=== PATIENT | male | born 2000 | race Caucasian/White ===

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

== ENCOUNTER 2022-07-21 13:18 | Emergency (ER) | payer BC, SELFPAY ==
[2022-07-21 13:19] VITALS: BP 137/87; PULSE 103; RESP 16; TEMP 36.8; O2SAT 99; BMI 26.9
--- NOTE | 2022-07-21 14:30 | RAD_ITS ---
STUDY: X-RAY - NASAL BONES REASON FOR EXAM: Male, 21 years old. Nasal injury. TECHNIQUE: 3 view(s) of the nasal bones. COMPARISON: None. FINDINGS: Nondisplaced fracture at the tip of the nasal bone. Normal anterior nasal spine. There is no demonstrated soft tissue swelling. The remaining visualized osseous structures are normal. Partial opacification of the axillary sinuses. RAD/Nasal Bones min 3 Views IMPRESSION: Nondisplaced fracture at the tip of the nasal bone. Electronically Signed: Raji Freeman MD at 14:53 EDT ,
--- NOTE | 2022-07-21 14:32 | EX.ED.DYSGE1 ---
HPI History of Present Illness Chief Complaint: Other, Pain/Inj Informant: patient Onset/Context/Timing Onset: Today Narrative Narrative: Patient states he was using his truck to pull out a tyson. He hit the gas hard. The truck went forward and then was pulled back by the tyson. When this happened he hit his nose on the handle that was on the a pillar. No loss of consciousness. He did tear the skin on his nose but no active bleeding. He had no epistaxis. He has some soreness directly in the area that was hit. No other injuries. Nothing makes better or worse but nothing has been tried. [facility] Medical History Contact with and (suspected) exposure to other viral communicable diseases Lab test negative for COVID-19 virus URI (upper respiratory infection) URI (upper respiratory infection) Home Medications epinephrine 0.3 mg/0.3 mL injection, auto-injector 0.3 mg (0.3 mL) IM X1 ##2 06/26/18 [Rx Last Taken 06/28/18] naproxen 500 mg tablet 500 mg PO BID #20 tabs 07/21/22 [Rx Last Taken Unknown] Allergy/AdvReac Type Severity Reaction Status Date / Time bee venom protein (honey bee) Allergy Severe Anaphylaxis Verified 07/21/22 13:21 venom-wasp [wasp venom] Allergy Severe Anaphylaxis Verified 07/21/22 13:21 clindamycin Allergy Hives Verified 07/21/22 13:21 Surgical History H/O right heart catheterization Hx of adenoidectomy Hx of tonsillectomy Social History Smoking Status: Never smoker alcohol intake: never ROS ROS ED Constitutional Constitutional ED: Denies fever(s) or subjective Eyes Eyes: Denies blurry vision, change in vision or diplopia ENT ENT ED: Reports other Details: See history of present illness. ; Denies ear pain or sore throat Cardiovascular Cardiovascular: Denies chest pain Respiratory/Chest Respiratory/Chest: Denies cough Gastrointestinal Gastrointestinal: Denies nausea or vomiting Musculoskeletal Musculoskeletal: Denies back pain or neck pain Integumentary Reports Abrasions Neurologic Neurologic: Reports other Details: Pain in his nose but not an actual headache ; Denies headache(s), paresthesias or weakness Hematologic/Lymphatic Hematologic/Lymphatic: Denies easy bleeding or easy bruising EXAM Physical Exam Const Vital Signs: 07/21/22 13:19 07/21/22 15:00 Temperature 98.2 F Temperature Source Temporal Pulse Rate 103 H Respiratory Rate 16 Respiratory Effort Normal Non-Labored Respiratory Pattern Normal Blood Pressure 137/87 H Blood Pressure Mean 103 Pulse Ox 99 Oxygen Delivery Method Room Air Positive well nourished and well developed Constitutional Narrative: Patient awake alert appropriate. He is laughing about the event. He feels embarrassed. He is pleasant cooperative and alert General Appearance ED: well developed and NAD HEENT Reports moist mucous membranes HEENT Narrative: Patient has an abrasion to the bridge of his nose central to the right side. No active bleeding. The nose actually looks well lined up. No crepitance. There is no internal bleeding. There is no septal hematoma. No facial tenderness. No facial anesthesia. Eyes Eyes Narrative: No subconjunctival hemorrhage. No limitation of range of motion. No diplopia with upward gaze. Neck supple Neck Narrative: No tenderness. Normal range of motion. General: Negative for tenderness Resp normal respiratory effort and clear to auscultation bilaterally Cardio regular rate and regular rhythm GI normal to inspection, nondistended, normoactive bowel sounds and non-tender Back/Spine no CVA tenderness Neuro oriented x3 Neuro Narrative: Normal gait and balance Sensorium / Orientation: alert; Negative for orientation impaired, lethargic or stuporous Sensory Exam: No sensory level loss detected Motor Exam: strength 5/5 throughout Skin Skin Narrative: Abrasion to the bridge of the nose MDM MDM MDM Narrative Medical decision making narrative: Patient has a slight tear of the skin over the bridge of the nose. But there is nothing that can be sutured. This is cleansed. This will heal. Tetanus is updated. He will be given Naprosyn for pain. He should use ice as that will help quite a bit. I explained that these likely will not need to be fixed. As long as the nose looks good and functions by breathing through both sides well he will likely not need repair. If he has worsening pain, headaches, vomiting, visual changes or other concerns he should return. Radiography Diagnostic Testing: Clinical Impression(s) from Imaging Studies Nasal Bones X-Ray 07/21/22 14:30 IMPRESSION: Nondisplaced fracture at the tip of the nasal bone. Electronically Signed: Raji Freeman MD at 14:53 EDT , Three-view x-ray of nasal bones looked at by me and read by radiology shoot do show nondisplaced fracture of the very distal tip of the nose. Discharge Plan Triage Chief Complaint: Other, Pain/Inj ED Provider: Damian Gant Dx/Rx/DC Orders Clinical Impression: Fracture, nasal Instructions: ED Nose Fracture, with X-Ray Prescriptions: New naproxen 500 mg tablet 500 mg PO BID Qty: 20 0RF No Action epinephrine 0.3 MG syringe 0.3 mg IM X1 Qty: 2 0RF Primary Care Provider: Uriel Clark NP Referrals: Uriel Clark NP, CRAB MEAT PROCESSOR-C [Primary Care Provider] - 1 Week if not improving Disposition Disposition: Home, Self Care
[2022-07-21] MEDS: Diphth,Pertuss(Acell),Tet Vac 0.5 ML Vial IM (14:54)
[2022-07-21] MEDS: Naproxen 250 MG Tablet 500 MG PO (15:21)
== END 2022-07-21 15:23 | disposition home or self-care (01) ==
PROVIDERS: Emergency Provider Emergency Medicine; PCP Nurse Practitioner; Visit Provider Emergency Medicine
DX: S02.2XXA Fracture of nasal bones, initial encounter for closed fracture (principal); X58.XXXA Exposure to other specified factors, initial encounter
CPT/HCPCS: 70160; 90715; 99282

== ENCOUNTER 2023-09-23 20:11 | Emergency (ER) | payer BC, SELFPAY ==
[2023-09-23 20:12] VITALS: BP 116/86; PULSE 71; RESP 18; TEMP 36.6; O2SAT 100; BMI 30.7
--- NOTE | 2023-09-23 20:15 | EKG12_ITS ---
Test Reason : CP Blood Pressure : / mmHG Vent. Rate : 078 BPM Atrial Rate : 078 BPM P-R Int : 140 ms QRS Dur : 092 ms QT Int : 348 ms P-R-T Axes : 025 011 036 degrees QTc Int : 396 ms Normal sinus rhythm with sinus arrhythmia Normal ECG Confirmed by JOSE CLEMENT, TREMAYNE ([id number]), publication editor KARRIE PHELPS ([id number]) on 09/24/2023 2:05:16 PM Referred By: Confirmed By:TREMAYNE GARCIA MD
--- NOTE | 2023-09-23 20:25 | RAD_ITS ---
EXAM: XR CHEST, 1 VIEW CLINICAL INDICATION: chest pain TECHNIQUE: Frontal view of the chest. COMPARISON: 12/10/2018 FINDINGS: LUNGS AND PLEURAL SPACES: Unremarkable. No consolidation or edema. No pneumothorax. No effusion. HEART: Unremarkable. Cardiac silhouette not enlarged. MEDIASTINUM: Central airways and mediastinal contour are unremarkable. BONES/JOINTS: Unremarkable. No acute fracture. SOFT TISSUES: Unremarkable. RAD/Chest 1 View (Portable) IMPRESSION: No radiographic evidence of acute cardiopulmonary disease. Electronically Signed: Daniel Paz MD at 20:53 EST ,
[2023-09-23 20:41] LABS: Absolute Lymphocyte Count 3.37 X10^3/uL (0.83-4.51); Absolute Neutrophil Count 4.5 X10^3/uL (2.0-7.7); Basophil# 0.06 X10^3/uL; Basophil% 0.7 % (0-1); Eosinophil# 0.51 X10^3/uL; Eosinophils% 5.6 % (0-5); Hematocrit 45.9 % (40-54); Hemoglobin 15.4 g/dL (13.0-16.5); Lymphocyte # 3.37 X10^3/ul (0.83-4.51); Lymphocyte % 36.9 % (19-41); Mean Corp Hgb Conc 33.6 g/dL (32-36); Mean Corpuscular Hgb 29.7 pg (27.0-32.0); Mean Corpuscular Volume 88.6 fL (80-94); Mean Platelet Vol. 10.1 fl (6.2-12.0); Monocyte% 7.7 % (0-10); NRBC Flagged by Analyzer 0 % (0-5); Neutrophil # 4.47 X10^3/uL (2.7-7.7); Neutrophil % 48.8 % (47-70); Platelet Count 294 K/mm3 (150-450); RBC Distribution Width CV 11.9 % (11.6-14.6); RBC Distribution Width SD 38.9 fl (35.1-43.9); Red Blood Count 5.18 M/mm3 (4.6-6.2); White Blood Count 9.1 K/mm3 (4.4-11.0)
[2023-09-23 21:04] LABS: Anion Gap 4 (5-15); BUN 9 mg/dL (7-18); BUN/Creat Ratio 8.7 RATIO (10-20); Calcium,Total 9.7 mg/dL (8.5-10.1); Chloride 109 mmol/L (98-107); Creatinine, Serum 1.03 mg/dL (0.70-1.30); EST Glomerular Filtration Rate 97 mL/min (>60); Est Glom Filt Rate - Afr Amer 118 mL/min (>60); Estimated Creatinine Clearance 133.01 ml/min; Glucose 108 mg/dL (74-106); Potassium 3.7 mmol/L (3.5-5.1); Sodium Level 140 mmol/L (136-145); Troponin-I HS (w/2H Reflex) 4 pg/mL (3.0-78.0)
[2023-09-23] MEDS: Mag Hydrox/Al Hydrox/Simeth 30 ML UDC PO (21:11)
[2023-09-23] MEDS: Ketorolac 15 MG/ML Vial IM (21:11)
[2023-09-23] MEDS: Ondansetron 4 MG/2 ML Vial IV (21:11)
--- NOTE | 2023-09-23 21:12 | EDS_ITS ---
HPI History of Present Illness Chief Complaint: Chest Pain Narrative Narrative: 22-year-old male presenting with chest pain. He states has had it for the last few days. It is worse overnight last night. He states initially it was intermittent and he points to the sternum. It does not really radiate. It feels sharp in nature. He was concerned that it was maybe from acid reflux and has been avoiding foods that would trigger this. He has been taking Pepcid and Tums. He still having the pain in his chest. It does hurt when he takes a deep breath and it does hurt when he touches his chest. No DVT/PE risk factors. Patient has history of ablation when he was younger secondary to having SVT but does not have any other cardiac history. He used to vape but no longer uses tobacco products or nicotine products. He has not fevers, chills. He states he feels mildly nauseous with his symptoms and a little bit dyspneic. Patient states that he is chronically a little bit dyspneic. There is nothing out of the ordinary for him. The nausea is new. [facility] Medical History Contact with and (suspected) exposure to other viral communicable diseases Lab test negative for COVID-19 virus URI (upper respiratory infection) URI (upper respiratory infection) Home Medications epinephrine 0.3 mg/0.3 mL injection, auto-injector 0.3 mg (0.3 mL) IM X1 ##2 06/26/18 [Rx Last Taken 06/28/18] naproxen 500 mg tablet 500 mg PO BID #20 tabs 07/21/22 [Rx Last Taken Unknown] ondansetron 4 mg disintegrating tablet 4 mg PO Q8H PRN PRN Nausea #14 tabs 09/23/23 [Rx Last Taken Unknown] sucralfate 100 mg/mL oral suspension (Carafate) 10 ml PO BID PRN epigastric pain #400 mL 09/23/23 [Rx Last Taken Unknown] Allergy/AdvReac Type Severity Reaction Status Date / Time bee venom protein (honey bee) Allergy Severe Anaphylaxis Verified 09/23/23 20:14 venom-wasp [wasp venom] Allergy Severe Anaphylaxis Verified 09/23/23 20:14 clindamycin Allergy Hives Verified 09/23/23 20:14 Surgical History H/O right heart catheterization Hx of adenoidectomy Hx of tonsillectomy Social History Smoking Status: Never smoker alcohol intake: never ROS ROS ED Constitutional Constitutional ED: Denies chills, fever(s) or sweats Eyes Eyes: Denies blurry vision or change in vision ENT ENT ED: Denies ear pain or sore throat Cardiovascular Cardiovascular: Reports chest pain; Denies palpitations or racing heartbeat Respiratory/Chest Respiratory/Chest: Reports dyspnea; Denies cough or sputum Gastrointestinal Gastrointestinal: Reports nausea; Denies abdominal pain, constipation, diarrhea or vomiting Genitourinary Genitourinary ED: Denies dysuria, hematuria or urinary frequency Musculoskeletal Musculoskeletal: Denies arthralgias, myalgias or neck pain Integumentary Denies abscess, Abrasions or rash Neurologic Neurologic: Denies headache(s), paresthesias or weakness Psychiatric Psychiatric: Denies anxiety, depression, suicidal ideation or suicidal thoughts Endocrine Endocrinology: Denies polydipsia or polyuria EXAM Physical Exam Const Vital Signs: 09/23/23 20:12 09/23/23 21:21 09/23/23 21:21 Temperature 97.9 F Temperature Source Temporal Pulse Rate 71 73 Respiratory Rate 18 16 Blood Pressure 116/86 H 144/85 H Blood Pressure Mean 96 104 Pulse Ox 100 98 98 Oxygen Delivery Method Room Air Room Air Room Air 09/23/23 22:09 09/23/23 22:12 Temperature Temperature Source Pulse Rate 79 Respiratory Rate 18 Blood Pressure 135/94 H Blood Pressure Mean 107 Pulse Ox 99 Oxygen Delivery Method Room Air Positive well nourished General Appearance ED: NAD; Negative for pallor HEENT Reports moist mucous membranes normocephalic and atraumatic Eyes PERRL and EOMs intact bilaterally Chest Wall Chest Narrative: There is to palpation of the sternum. There is no crepitance, deformity. No bruising. Equal symmetric breath sounds or chest wall rise. Resp normal respiratory effort and clear to auscultation bilaterally Auscultation: Negative for rales, rhonchi or wheezes Cardio regular rate and regular rhythm Extremity normal to inspection General Extremety ED: Negative for edema General Extremity: Negative for edema Neuro oriented x3 Sensorium / Orientation: awake and alert Psych mental status grossly normal Mood & Affect: Negative for depressed or anxious Skin no rashes or lesions noted General Skin Exam: Negative for jaundice or pallor MDM MDM MDM Narrative Medical decision making narrative: Patient presenting with chest pain. It is reproducible on exam and is located in the sternum. Patient PERC negative. No DVT/PE risk factors. Differential includes costochondritis, pneumonia, ACS, GERD, gastritis. CBC was obtained to assess white blood cell count, hemoglobin, platelets, BMP to assess renal function, electrolytes. High-sensitivity troponin and EKG were obtained to assess for ischemia. Chest x-ray to rule out pneumonia. CBC, BMP, troponin all within normal limits. High-sensitivity troponin is actually 4 and he states he had pain in his chest since this morning so I do not believe he needs a delta troponin. After being treated with Zofran and a GI cocktail he felt a lot of relief. We discussed his negative workup and I told him we would send him home with Carafate and Zofran and he can use Tylenol at home to help with pain. He states at 1 point he stood up to plug in his phone he started having pain in his chest again. Still reproducible possible this could be costochondritis as well. I do not believe this is an acute and after discussion the patient was told to discharge. Impression: 1. Costochondritis 2. Chest pain 3. Gastritis Lab Data Attestation: I reviewed the patient's lab results. Labs: Laboratory Results - last 24 hr 09/23/23 20:20 WBC 9.1 RBC 5.18 Hgb 15.4 Hct 45.9 MCV 88.6 MCH 29.7 MCHC 33.6 RDW Std Deviation 38.9 RDW Coeff of Sukhjinder 11.9 Plt Count 294 MPV 10.1 Immature Gran % (Auto) 0.300 Neut % (Auto) 48.8 Lymph % (Auto) 36.9 Lamar % (Auto) 7.7 Eos % (Auto) 5.6 H Baso % (Auto) 0.7 Absolute Neuts (auto) 4.5 Absolute Lymphs (auto) 3.37 Nucleated RBC % 0 Sodium 140 Potassium 3.7 Chloride 109 H Carbon Dioxide 27.0 Anion Gap 4 L BUN 9 Creatinine 1.03 Estim Creat Clear Calc 133.01 Est GFR (MDRD) Af Amer 118 Est GFR (MDRD) Non-Af 97 BUN/Creatinine Ratio 8.7 L Glucose 108 H Calcium 9.7 Troponin I High Sens 4 Radiography Diagnostic Testing: Clinical Impression(s) from Imaging Studies Chest X-Ray 09/23/23 20:25 IMPRESSION: No radiographic evidence of acute cardiopulmonary disease. Electronically Signed: Daniel Paz MD at 20:53 EST , Discharge Plan Triage Chief Complaint: Chest Pain ED Provider: Uriel Santos Dx/Rx/DC Orders Instructions: ED Chest Wall Pain, Costochondritis, ED GERD (Adult) Prescriptions: New sucralfate [Carafate] 100 mg/mL suspension 10 ml PO BID PRN (Reason: epigastric pain) Qty: 400 0RF ondansetron 4 mg tablet,disintegrating 4 mg PO Q8H PRN PRN (Reason: Nausea) Qty: 14 0RF No Action epinephrine 0.3 MG syringe 0.3 mg IM X1 Qty: 2 0RF naproxen 500 mg tablet 500 mg PO BID Qty: 20 0RF Primary Care Provider: Uriel Clark NP Referrals: Uriel Clark NP, EXAMINATION GRADER-C [Primary Care Provider] - Disposition Disposition: Home, Self Care
[2023-09-23 21:21] VITALS: BP 144/85; PULSE 73; RESP 16; O2SAT 98
[2023-09-23 22:09] VITALS: PULSE 79; RESP 18; O2SAT 99
[2023-09-23 22:12] VITALS: BP 135/94
[2023-09-23 22:26] LABS: Reflex Troponin-HS? (from REC) Y
[2023-09-23 22:43] VITALS: BP 114/78; PULSE 81; RESP 16; O2SAT 98
== END 2023-09-23 22:44 | disposition home or self-care (01) ==
PROVIDERS: Emergency Provider Student in an Organized Health Care Education/Training Program; PCP Nurse Practitioner; Visit Provider Student in an Organized Health Care Education/Training Program
DX: M94.0 Chondrocostal junction syndrome [Tietze] (principal); K29.70 Gastritis, unspecified, without bleeding; Z87.891 Personal history of nicotine dependence
CPT/HCPCS: 71045; 80048; 84484; 85025; 93005; 96372; 96374; 99285; A4216; J2405

== ENCOUNTER 2024-09-29 21:15 | Emergency (ER) | payer BC, SELFPAY ==
[2024-09-29 21:15] VITALS: BP 122/86; PULSE 90; RESP 16; TEMP 36.6; O2SAT 98; BMI 28.5
--- NOTE | 2024-09-29 22:17 | EDS_ITS ---
HPI History of Present Illness Chief Complaint: [facility] History Contact with and (suspected) exposure to other viral communicable diseases Lab test negative for COVID-19 virus URI (upper respiratory infection) URI (upper respiratory infection) Home Medications ?Medication ?Instructions ?Recorded ?Last Taken ?Type epinephrine 0.3 mg/0.3 mL 0.3 mg (0.3 mL) IM X1 ##2 06/26/18 06/28/18 Rx injection, auto-injector naproxen 500 mg tablet 500 mg PO BID #20 tabs 07/21/22 Unknown Rx ondansetron 4 mg disintegrating 4 mg PO Q8H PRN PRN Nausea #14 tabs 09/23/23 Unknown Rx tablet sucralfate 1 gram tablet (Carafate) 1 g PO BID PRN epigastric #30 tabs 09/23/23 Unknown Rx Allergy/AdvReac Type Severity Reaction Status Date / Time bee venom protein (honey bee) Allergy Severe Anaphylaxis Verified 09/23/23 20:14 venom-wasp (wasp venom) Allergy Severe Anaphylaxis Verified 09/23/23 20:14 clindamycin Allergy Hives Verified 09/23/23 20:14 Surgical History H/O right heart catheterization Hx of adenoidectomy Hx of tonsillectomy Social History Smoking Status: Never smoker alcohol intake: never EXAM Physical Exam Const Vital Signs: 09/29/24 21:15 09/29/24 23:16 Temperature 98 F 97.8 F Temperature Source Oral Pulse Rate 90 67 Respiratory Rate 16 16 Blood Pressure 122/86 H 124/78 H Blood Pressure Mean 98 93 Pulse Ox 98 99 Oxygen Delivery Method Room Air MDM MDM MDM Narrative Medical decision making narrative: HISTORY OF PRESENT ILLNESS: 23-year-old male presents with numbness and tingling to the left lower extremity. Notes numbness and tingling from mid calf down to foot. Occurred 4 days ago. No recent trauma. No knee pain. No back pain. No history of sciatica. Denies history of back surgeries. Denies any fall or other trauma. Denies history of diabetes. Patient denies any saddle anesthesia, urinary tension, bowel or bladder incontinence, lower extremity weakness, fever or IV drug use, no recent spinal manipulation or surgery, no recent urinary catheterization. REVIEW OF SYSTEMS: All other systems reviewed and are negative except as noted in the history of present illness. At least 10 review of systems reviewed and are negative except as noted in history of present illness. PHYSICAL EXAM: Nursing triage notes reviewed, Vital signs reviewed Constitutional: please see mdm HENT: MMM Eyes: Pupils equal round and reactive to light, Extraocular muscles intact Neck: No stridor, no JVD, full neck ROM Lungs: Clear to auscultation, No wheezing or rales. No increased work of breathing, no conversational dyspnea, no accessory muscle use, no nasal flaring. No respiratory distress noted Heart: Regular rate and rhythm, No murmurs, No rubs and No gallops, 2+ distal pulses (radial, femoral, posterior tibial) in all extremities Abdomen: Soft, there is no tenderness, rigidity, rebound or guarding, no obvious peritoneal signs, no palpable pulsatile abdominal masses, no auscultated abdominal bruit : No CVAT Extremities: No edema Back: No midline step-offs or deformities Neuro: Intact sensation L1-S1 dermatomal distributions. Intact 5/5 strength in hip flexion (T12-L3). Knee extension (L2-L4). Ankle dorsiflexion (L4-L5). Ankle plantar flexion (S1). Great toe extension (L5). 2+ patellar and Achilles DTRs. Skin: No rash or lesions noted MEDICAL DECISION MAKING: Chief Complaint: Back pain External records reviewed: Reviewed prior x-ray lumbar spine showed normal lumbar lordosis, normal vertebral bodies, no fractures or dislocations Factors affecting care: Back pain Social determinants of health: No IV drug use History obtained from others: none Consults: none ALL IMAGES (IF OBTAINED) HAVE BEEN PERSONALLY REVIEWED AND INTERPRETED BY MYSELF. [facility] Narrative: The patient was initially hemodynamically stable, afebrile and nontoxic- appearing. Left lower extremity is neurovascular intact. Had good cap refill, palpable pulses. Intact sensation although the patient noted subjective change in sensation of left lower extremity. Intact ankle knee and hip range of motion. No midline step-offs or deformities noted to the lumbar spine. I considered the following differential diagnosis: Musculoskeletal back pain, arterial occlusion, DVT, septic arthritis, ankle knee or other bony fracture dislocation space-occupying lesion of the spinal (epidural abscess, epidural hematoma), cauda equina, conus medullaris, fracture dislocation, AAA, nephrolithiasis, pyelonephritis, aortic dissection The patient's history and clinical exam were not consistent with an acute life- threatening etiology. Specifically there is no focal neurologic deficits to suggest CVA. He had intact pulses. No evidence of arterial occlusion. Patient had no back pain or back pain red flags to suggest space-occupying lesion of the spine. He had full range of motion ankle knee and hip. No evidence of fracture or dislocation. Unclear etiology I suspect peripheral neuropathy. The patient and/or family, caregivers express understanding. The patient and/or family, caregivers agrees with the plan. Total critical care time today provided was at least 0 minutes. This excludes separately billable procedures. Critical care time (if documented) is secondary to the patient having high probability of clinically significant/life threatening deterioration in the patient's condition which required my urgent intervention. Impression: 1. Peripheral neuropathy Disposition: Discharge home Agapito Wolff DO Discharge Plan Triage Chief Complaint: Numb/Ting Other Complaint: Lower Extremity Injury ED Provider: Agapito Wolff Dx/Rx/DC Orders Clinical Impression: Peripheral neuropathy Instructions: ED Neuropathy, Peripheral Prescriptions: No Action epinephrine 0.3 MG syringe 0.3 mg IM X1 Qty: 2 0RF naproxen 500 mg tablet 500 mg PO BID Qty: 20 0RF ondansetron 4 mg tablet,disintegrating 4 mg PO Q8H PRN PRN (Reason: Nausea) Qty: 14 0RF sucralfate [Carafate] 1 gram tablet 1 g PO BID PRN (Reason: epigastric) Qty: 30 0RF Primary Care Provider: Uriel Clark NP Referrals: Uriel Clark NP, DIRECTOR OF STUDENT [employer]ANCIAL SERVICES-C [Primary Care Provider] - Activity Restrictions/Additional Instructions: Thank you for trusting us with your care today! Please take Tylenol (2 pills, 650 mg), ibuprofen (2 pills, 400 mg) every 6 hours as needed for pain and fever control. Please return to the emergency department if your symptoms change or worsen. Specifically if you notice back pain, loss of bladder bowel control, urinary retention, decreased sensation in your primary region, discoloration of your left lower extremity, cool left lower extremity. Please follow with your primary care physician for further outpatient evaluation and management. Print Language: Ethiopian Disposition Disposition: Home, Self Care Discharge Date/Time: 09/29/24 23:17
[2024-09-29 23:16] VITALS: BP 124/78; PULSE 67; RESP 16; TEMP 36.6; O2SAT 99
== END 2024-09-29 23:17 | disposition home or self-care (01) ==
PROVIDERS: Emergency Provider Emergency Medicine; PCP Nurse Practitioner; Visit Provider Emergency Medicine
DX: G62.9 Polyneuropathy, unspecified (principal)
CPT/HCPCS: 99283

== ENCOUNTER 2025-04-30 23:09 | Emergency (ER) | payer BC, SELFPAY ==
[2025-04-30 23:11] VITALS: BP 127/81; PULSE 92; RESP 18; TEMP 36.4; O2SAT 99; BMI 29.0
--- NOTE | 2025-04-30 23:26 | EX.ED.DYSGE1 ---
HPI History of Present Illness Chief Complaint: Allergic Reaction Informant: patient and parent Narrative Narrative: 24-year-old male was stung by bees while he was mowing this afternoon, this was 6 or 8 hours ago, he thinks he was stung 3-4 times total, couple of them in the right thigh and once in the right face/cheek. States he has a history of allergies, and he did undergo allergy shots for this after he had been hospitalized in the past and this is the first time his been stung since then. He went in a house and took a couple of Benadryl right away, and took a nap. When he woke up he has felt hot, throat now feeling a little tight tonight, but denies dyspnea, syncope, near syncope, peripheral swelling, significant discomfort/pain at sting sites, and he feels like his face is swollen. He checked to see if he had an EpiPen but they were all he has not used any. [facility] Medical History Contact with and (suspected) exposure to other viral communicable diseases URI (upper respiratory infection) Lab test negative for COVID-19 virus URI (upper respiratory infection) Home Medications ?Medication ?Instructions ?Recorded ?Last Taken ?Type naproxen 500 mg tablet 500 mg PO BID #20 tabs 07/21/22 Unknown Rx ondansetron 4 mg disintegrating 4 mg PO Q8H PRN PRN Nausea #14 tabs 09/23/23 Unknown Rx tablet sucralfate 1 gram tablet (Carafate) 1 g PO BID PRN epigastric #30 tabs 09/23/23 Unknown Rx epinephrine 0.3 mg/0.3 mL 0.3 mg (0.3 mL) IM X1 PRN 04/30/25 Unknown Rx injection, auto-injector anaphylaxis #2 syringes prednisone 20 mg tablet 40 mg (2 x 20 mg) PO DAILY 4 days 04/30/25 Unknown Rx #8 tabs Allergy/AdvReac Type Severity Reaction Status Date / Time bee venom protein (honey bee) Allergy Severe Anaphylaxis Verified 04/30/25 23:11 venom-wasp (wasp venom) Allergy Severe Anaphylaxis Verified 04/30/25 23:11 clindamycin Allergy Hives Verified 04/30/25 23:11 Surgical History H/O right heart catheterization Hx of adenoidectomy Hx of tonsillectomy Social History Smoking Status: Current every day smoker tobacco type: cigarettes and e-cigarettes alcohol intake: never ROS ROS ED Constitutional Constitutional ED: Denies chills or fever(s) Eyes Eyes: Denies change in vision or diplopia ENT ENT ED: Reports as per HPI and throat swelling; Denies rhinorrhea or sore throat Cardiovascular Cardiovascular: Denies chest pain, leg edema, lightheadedness, palpitations or syncope Respiratory/Chest Respiratory/Chest: Denies cough or dyspnea Gastrointestinal Gastrointestinal: Denies abdominal pain, diarrhea, nausea or vomiting Genitourinary Genitourinary ED: Denies dysuria or hematuria Musculoskeletal Musculoskeletal: Denies back pain or neck pain Integumentary Denies abscess or rash Neurologic Neurologic: Denies headache(s), paresthesias or weakness Psychiatric Psychiatric: Denies anxiety or suicidal thoughts EXAM Physical Exam Const Vital Signs: 04/30/25 23:11 Temperature 97.6 F L Temperature Source Temporal Pulse Rate 92 Respiratory Rate 18 Blood Pressure 127/81 H Blood Pressure Mean 96 Pulse Ox 99 Oxygen Delivery Method Room Air Positive well nourished and well developed General Appearance ED: well developed and NAD HEENT Reports moist mucous membranes HEENT Narrative: Small area of erythema mild swelling right facial cheek consistent with a [id number] reaction no tenderness to suggest infection. No other objective facial edema. Intraoral exam is normal no stridor normal voice. normocephalic and atraumatic Eyes PERRL and EOMs intact bilaterally Neck full ROM, no lymphadenopathy and supple Resp normal respiratory effort and clear to auscultation bilaterally Cardio regular rate, regular rhythm and no murmurs Rate: Negative for tachycardic GI non-tender and non-distended Auscultation: normoactive bowel sounds Palpation: soft Back/Spine no CVA tenderness General Back: other FROM Extremity normal to inspection General Extremety ED: Negative for edema, pulses abnormal or tenderness General Extremity: Negative for edema or pulses abnormal Neuro oriented x3, CN's II-XII intact bilaterally and no sensory deficits noted Sensorium / Orientation: awake and alert Motor Exam: strength 5/5 throughout Skin no rashes or lesions noted and no wounds Skin Narrative: Likely sting site right cheek, no lesions on the leg, compartment soft and nondistended no other rashes. MDM MDM MDM Narrative Medical decision making narrative: Distended patient has some throat symptoms, but he is speaking normally is able to swallow, his vital signs are normal, and he has no objective signs of true anaphylaxis at this time. We placed an IV and give him some IV steroids, H2 and H1 blockers, and observed him. There is no worsening, so I think he is stable for discharge home with a short course of steroids and new EpiPen prescription. Do not think he needs any epinephrine at this time discussed that with patient is comfortable with that overall plan we discussed reasons to return and use EpiPen. 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 Instructions: ED BEE STING General Allergic Rxn Prescriptions: New prednisone 20 mg tablet 40 mg PO DAILY 4 Days Qty: 8 0RF Changed epinephrine 0.3 MG syringe 0.3 mg IM X1 PRN (Reason: anaphylaxis) Qty: 2 0RF No Action naproxen 500 mg tablet 500 mg PO BID Qty: 20 0RF ondansetron 4 mg tablet,disintegrating 4 mg PO Q8H PRN PRN (Reason: Nausea) Qty: 14 0RF sucralfate [Carafate] 1 gram tablet 1 g PO BID PRN (Reason: epigastric) Qty: 30 0RF Primary Care Provider: Uriel Clark NP Referrals: Uriel Clark NP, RENT AND MISCELLANEOUS REMITTANCE CLERK-C [Primary Care Provider] - As Needed (Or current physician/park recreation manager) Print Language: Chilean Disposition Disposition: Home, Self Care
[2025-04-30] MEDS: Famotidine 200 MG/20 ML MDV 20 MG in 0.9% Normal Saline (Pres. free 8 ML 300 MG IV (23:40)
--- OUTSIDE RECORDS SUMMARY | 2025-04-30 23:42 | XMS RPT_ITS | CCD ---
Author Organization [facility] Care Team Providers Care Artist Model Name Role Phone Hernán TRIPP, Trinity N Unavailable Unavailab le Hernán TRIPP, Trinity N Unavailable Unavailab le Hernán TRIPP, Trinity N Unavailable Unavailab ian Clark DOCKING SAW OPERATOR, DOCKING SAW OPERATOR-C Uriel Primary Care Provider Eduardo DOCKING SAW OPERATOR, DOCKING SAW OPERATOR-C Uriel Referring Provider Uriel TATUM, DEEPTI Joseph Attending Provider LUKASZ DLIL Attending Unavailable REFERRED, SELF Referring Unavailable KRUEPKE, KARRIE M Primary Care Unavailable LUKASZ DILL Attending Unavailable REFERRED, SELF Referring Unavailable KRUEPKE, KARRIE M Primary Care Unavailable LUKASZ DILL Attending Unavailable REFERRED, SELF Referring Unavailable KRUEPKE, KARRIE M Primary Care Unavailable LUKASZ DILL Attending Unavailable REFERRED, SELF Referring Unavailable KRUEPKE, KARRIE M Primary Care Unavailable LUKASZ DILL Attending Unavailable KRUEPKE, KARRIE M Referring Unavailable KRUEPKE, KARRIE M Primary Care Unavailable LUKASZ DILL Attending Unavailable KRUEPKE, KARRIE M Referring Unavailable KRUEPKE, KARRIE M Primary Care Unavailable LUKASZ DILL Attending Unavailable KRUEPKE, KARRIE M Referring Unavailable KRUEPKE, KARRIE M Primary Care Unavailable LUKASZ DILL Attending Unavailable KRUEPKE, KARRIE M Referring Unavailable KRUEPKE, KARRIE M Primary Care Unavailable LUKASZ DILL Attending Unavailable KRUEPKE, KARRIE M Referring Unavailable KRUEPKE, KARRIE M Primary Care Unavailable LUKASZ DILL Attending Unavailable REFERRED, SELF Referring Unavailable KRUEPKE, KARRIE M Primary Care Unavailable LUKASZ DILL Attending Unavailable REFERRED, SELF Referring Unavailable KRUEPKE, KARRIE M Primary Care Unavailable LUKASZ DILL Attending Unavailable REFERRED, SELF Referring Unavailable KARRIE SAAVEDRA Primary Care Unavailable REFERRED, SELF Referring Unavailable KARRIE SAAVEDRA Primary Care Unavailable LUKASZ DILL Attending Unavailable Uriel Clark Primary Care Unavailable Agapito Wolff Attending Unavailable Uriel Clark Referring Unavailable Uriel Clark Primary Care Unavailable Suhail Estrella Attending Unavailable Allergies Allergy Classification Reported Allergen(s) Allergy Type Date of Onset Reaction(s) Facility (1 source) Clindamycin Drug Allergy 2 Hives [facility] Work Phone: (1 source) bee venom protein (honey bee) Allergy to substance 2 Anaphylaxis [facility] Work Phone: (1 source) venom-wasp Allergy to substance 2 Anaphylaxis [facility] Work Phone: (1 source) bee venom; Translations: [BEE VENOM] Propensity to adverse reactions to drug (disorder) 8 [facility] Repository (1 source) CLINDAMYCIN/LINC OMYCIN; Translations: [CLINDAMYCIN/GILLIAN COMYCIN] Propensity to adverse reactions to drug (disorder) 9 [facility] Repository (1 source) Clindamycin Drug Allergy 5 [facility] Rep[facility] (1 source) venom-wasp Drug allergy (disorder) 5 [facility] (1 source) bee venom protein (honey bee) Drug allergy (disorder) 5 [facility] Medications Current Medications Medication Drug Class(es) Dates Sig (Normalized) Sig (Original) [id number] 0.3 ml EPINEPHrine 1 mg/ml auto-injector (1 source) alpha-Adrenergic Agonist, beta-Adrenergic Agonist, Catecholamine Start: 06-26-2018 inject 0.3 mg by intramuscular injection once Epinephrine Active 0.3 MG IM ONE TIME June 26, 2018 12:00am naproxen 500 mg oral tablet (1 source) Nonsteroidal Anti-inflammatory Drug Start: 07-21-2022 take 500 mg by mouth twice daily Naproxen Active 500 MG PO TWICE A DAY July 21, 2022 12:00am Completed/Discontinued Medications Medication Drug Class(es) Dates Sig (Normalized) Sig (Original) acetaminophen 300 mg / codeine phosphate 30 mg oral tablet (1 source) Opioid Agonist Start: 06-15-2017 End: 10-20-2017 take 1 tablet by mouth every four hours as needed Acetaminophen-Code ine Discontinued 1 TABLET PO EVERY 4 HOURS NEEDED June 15, 2017 3:10am October 20, 2017 5:48pm azithromycin 250 mg oral tablet (1 source) Macrolide Antimicrobial Start: 01-10-2018 End: 01-15-2018 Azithromycin Discontinued 250 MG PO daily 6 January 10, 2018 12:00am January 15, 2018 12:07am Take 2 tabs once on day one then take one tablet once daily for the next 4 days. cephalexin 500 mg oral capsule (4 sources) Cephalosporin Antibacterial Start: 12-22-2018 End: 12-06-2019 take 500 mg by mouth every twelve hours Cephalexin Discontinued 500 MG PO EVERY 12 HOURS December 22, 2018 12:00am December 06, 2019 11:19am Start: 01-30-2017 End: 02-09-2017 CEPHALEXIN 500 MG TABS Take 1 tablet every 12 hours CEPHALEXIN [id number] Suhail TATUM diphenhydrAMINE hydrochloride 25 mg oral capsule (1 source) Histamine-1 Receptor Antagonist Start: 06-27-2018 End: 10-16-2018 take 50 mg by mouth three times daily as needed Diphenhydramine Hcl Discontinued 50 MG PO 3 TIMES DAILY NEEDED June 27, 2018 1:32pm October 16, 2018 2:50pm famotidine 20 mg oral tablet (1 source) Histamine-2 Receptor Antagonist Start: 06-27-2018 End: 10-16-2018 take 20 mg by mouth twice daily Famotidine Discontinued 20 MG PO TWICE A DAY June 27, 2018 12:00am October 16, 2018 2:50pm IBUPROFEN CAPS (2 sources) Nonsteroidal Anti-inflammatory Drug Start: 01-30-2017 ADVIL CAPS as directed IBUPROFEN CAPS [id number] Suhail TATUM ofloxacin 3 mg/ml ophthalmic solution (1 source) Quinolone Antimicrobial Start: 01-15-2019 End: 12-06-2019 Ofloxacin Discontinued 0 OPHTHALMIC .COMPLEX January 15, 2019 12:00am December 06, 2019 11:19am put 1-2 drps into affected eye(s) every 2-4 h x 2 days, then 1-2 drps 4 times/day days 3-7 ophthalmic (eye) ondansetron 4 mg disintegrating oral tablet (1 source) Serotonin-3 Receptor Antagonist Start: 06-15-2017 End: 10-20-2017 take 4 mg by mouth every eight hours as needed Ondansetron Discontinued 4 MG PO EVERY 8 HOURS NEEDED June 15, 2017 12:00am October 20, 2017 5:48pm oseltamivir 75 mg oral capsule (1 source) Neuraminidase Inhibitor Start: 12-06-2019 End: 12-11-2019 take 75 mg by mouth twice daily Oseltamivir Discontinued 75 MG PO TWICE A DAY 10 December 06, 2019 1:00am December 11, 2019 12:09am predniSONE 20 mg oral tablet (3 sources) Start: 12-22-2018 End: 12-06-2019 take 40 mg by mouth once daily at mealtime Prednisone Discontinued 40 MG PO DAILY December 22, 2018 12:00am December 06, 2019 11:18am With food Start: 12-22-2018 End: 12-06-2019 take 60 mg by mouth once daily at mealtime Prednisone Discontinued 60 MG PO DAILY December 22, 2018 12:00am December 06, 2019 11:18am With food Start: 06-27-2018 End: 10-16-2018 take 60 mg by mouth once daily, then take 50 mg by mouth once daily, then take 40 mg by mouth once daily, then take 30 mg by mouth once daily, then take 20 mg by mouth once daily, then take 10 mg by mouth once daily Prednisone Discontinued 10 MG PO DAILY June 27, 2018 12:00am October 16, 2018 2:50pm 60 mg p.o. daily 3 days, 50 mg p.o. daily 3 days, 40 mg p.o. daily 3 days, 30 mg p.o. daily 3 days, 20 mg p.o. daily 3 days, 10 mg p.o. daily 3 days. Problems Active Problems Problem Classification Problem Date Documented Da te Episodic/Chronic Abdominal pain (1 source) Abdominal pain; Translations: [Unspecified abdominal pain] Episodic Immunizations and screening for infectious disease (4 sources) Contact with or exposure to other viral diseases; Translations: [Lab test negative for COVID-19 virus] Episodic Open wounds of extremities (5 sources) Late effect of open wound of extremities without mention of tendon injury; Translations: [Laceration of lower leg without foreign body] Onset: 02-27-2014 02-27-2014 Episodic Other circulatory disease (1 source) Pulmonary congestion ; Translations: [Other specified symptoms and signs involving the circulatory and respiratory systems] Episodic Other nervous system disorders (1 source) Anesthesia of skin; Translations: [Anesthesia of skin] Onset: 10-24-2024 Episodic Other skin disorders (1 source) Ingrowing great toenail; Translations: [Ingrowing nail] Episodic Other upper respiratory disease (1 source) Congestion of nasal sinus; Translations: [Nasal congestion] Episodic Other upper respiratory infections (6 sources) Acute upper respiratory infection; Translations: [Acute upper respiratory infection, unspecified] Episodic Skin and subcutaneous tissue infections (5 sources) Infection of skin; Translations: [Paronychia of toe] Onset: 01-30-2017 01-30-2017 Episodic Skull and face fractures (1 source) Fractured nasal bones; Translations: [Fracture of nasal bones, initial encounter for closed fracture] Episodic Spondylosis; intervertebral disc disorders; other back problems (1 source) Backache; Translations: [Dorsalgia, unspecified] Episodic Unclassified (1 source) Contusion of left lower leg, initial encounter Viral infection (1 source) Disease caused by 2019-nCoV; Translations: [COVID-19] Episodic Past or Other Problems Problem Classification Problem Date Documented Da te Episodic/Chronic Open wounds of head; neck; and trunk (3 sources) Late effect of open wound of head, neck, and trunk; Translations: [Late effect of open wound of head, neck, and trunk] Onset: 02-27-2014 02-27-2014 Episodic Other skin disorders (6 sources) Scar conditions and fibrosis of skin; Translations: [Scar conditions and fibrosis of skin] Onset: 02-27-2014 02-27-2014 Episodic Unclassified (6 sources) Family history of malignant melanoma; Translations: [Family history of asthma] 02-23-2014 Episodic Results Test Name Value Interpretation Reference Range Facility Urgent Care Visit Reporton 0 11-10-2024 Urgent Care Visit Report [facility] [address], [address] [place] [address] OFFICE VISIT Date of Service: 11/10/24 MR#: [id number] Acct: [id number] Name: REDD KINCAID Rep #: [id number] : 2000 Provider: DEEPTI Yarbrough Age/Sex: 23/M Location: [facility] [place] Status: Signed Intake Vital Signs 09/29/24 21:15 11/10/24 14:08 Height 6 ft 2 in BP 122/76 H Blood Pressure Location Lt brachial Position Sitting Respiration 14 Pulse 82 Pulse Source NIBP Temp 98.1 F Temp Source Oral Pulse Oximetry (%) 97 Oxygen Delivery Method room air Intake Visit Reasons: HEAD COLD Chief Complaint: DANGELO [facility]ULL [facility] Duplex Trimmer Required: No Is patient in pain?: No Allergies bee venom protein (honey bee) Allergy (Severe, Verified 11/10/24 14:09) Anaphylaxis venom-wasp (wasp venom) Allergy (Severe, Verified 11/10/24 14:09) Anaphylaxis clindamycin Allergy (Verified 11/10/24 14:09) Hives Have you fallen in the past year?: No Nurse's Note: DANGELO HULL [facility] x 24 hours. denies fever, cough, congestion PFSH Medical History Contact with and (suspected) exposure to other viral communicable diseases Lab test negative for COVID-19 virus URI (upper respiratory infection) URI (upper respiratory infection) Surgical History H/O right heart catheterization Hx of adenoidectomy Hx of tonsillectomy Social History Smoking Status: Never smoker alcohol intake: never HPI HPI Chief Complaint: DANGELO HULL [facility] Details: REDD KINCADI, is a 23 M who presents to the office today for complaint of headache, body aches and sore throat starting yesterday. Patient states that most of symptoms of the headache have improved. He is requesting a work excuse note for last night and tonight. He denies fever, chills, sweats. No nausea, vomiting or diarrhea. No loss of taste or smell. No other associated symptoms or alleviating/aggravat ing factors. ROS Const Constitutional: No other (As above) Exam Const General: cooperative and well developed HENMT Head: normal to inspection and atraumatic Ears: hearing grossly normal bilaterally Nose: nasal discharge clear Face and sinus: normal facial exam Mouth: oral mucosae normal Throat: abnormal tonsil bilaterally hypertrophy 1+ Resp Effort Inspection: normal respiratory effort and no audible wheezes Auscultation: Bilateral: Clear to Auscultation Cardio Palpation: normal PMI Rate: regular rate Rhythm: regular rhythm Neuro General: patient alert and CN's II-XI intact bilaterally Psych Appearance: grossly normal Mental Status: mental status grossly normal Results POC RICHARD Covid FluAB PCR POC Richard Covid PCR Not Detected Last Edit by Daily Miles on 11/10/24 14:26 POC RICHARD FLU NOT DETECTED FLU A B Last Edit by Daily Miles on 11/10/24 14:26 Coding Level of Care Code Off vis,est,level 3 Diagnoses URI (upper respiratory infection) J06.9 Contact with and (suspected) exposure to other viral communicable diseases Z20.828 Assessment and Plan Assessment and Plan (1) URI (upper respiratory infection): Status: Acute (2) Contact with and (suspected) exposure to other viral communicable diseases: Status: Acute Orders: Orders POC Richard Covid FLUAB PCR Today Plan Patient tested negative for COVID and influenza in the office today. Encouraged to get plenty of rest, drink lots of clear liquids, and use Tylenol or Ibuprofen (unless contraindicated) for fever and comfort. Patient also educated on other symptomatic management techniques. To be seen in 7-10 days if no improvement; sooner if worsening of symptoms. Patient advised of potential red flags and when appropriate to report to the ED. Patient verbalized understanding and agreement with all the above. Clinical Quality Measures Falls Risk Screening/Assistive Devices Have you fallen in the past year?: No 11/10/24 1457 Date Suhail TATUM Cosigner Signature: Date (if applicable) CC: Normal [facility] Emergency Department Summary on 09-29-2024 Emergency Department Summary [facility] Medical Records Department [address] [place] [address] Emergency Department Summary 09/29/24 MR#: [id number] Acct: [id number] Name: REDD KINCAID Rep #: [id number] : 2000 23 From: Agapito Wolff DO PCP: MIGUEL PhanC Status:DEP ER Location: ED HPI History of Present Illness Chief Complaint: Numb/Ting PFSH PFSH Medical History Contact with and (suspected) exposure to other viral communicable diseases Lab test negative for COVID-19 virus URI (upper respiratory infection) URI (upper respiratory infection) Home Medications ???Medication ???Instructions ???Recorded ???Last Taken ???Type epinephrine 0.3 mg/0.3 mL 0.3 mg (0.3 mL) IM X1 ##2 06/26/18 06/28/18 Rx injection, auto-injector naproxen 500 mg tablet 500 mg PO BID #20 tabs 07/21/22 Unknown Rx ondansetron 4 mg disintegrating 4 mg PO Q8H PRN PRN Nausea #14 tabs 09/23/23 Unknown Rx tablet sucralfate 1 gram tablet (Carafate) 1 g PO BID PRN epigastric #30 tabs 09/23/23 Unknown Rx Allergy/AdvReac Type Severity Reaction Status Date / Time bee venom protein (honey bee) Allergy Severe Anaphylaxis Verified 09/23/23 20:14 venom-wasp (wasp venom) Allergy Severe Anaphylaxis Verified 09/23/23 20:14 clindamycin Allergy Hives Verified 09/23/23 20:14 Surgical History H/O right heart catheterization Hx of adenoidectomy Hx of tonsillectomy Social History Smoking Status: Never smoker alcohol intake: never EXAM Physical Exam Const Vital Signs: 09/29/24 21:15 09/29/24 23:16 Temperature 98 F 97.8 F Temperature Source Oral Pulse Rate 90 67 Respiratory Rate 16 16 Blood Pressure 122/86 H 124/78 H Blood Pressure Mean 98 93 Pulse Ox 98 99 Oxygen Delivery Method Room Air [facility] [place] Medical decision making narrative: HISTORY OF PRESENT ILLNESS: 23-year-old male presents with numbness and tingling to the left lower extremity. Notes numbness and tingling from mid calf down to foot. Occurred 4 days ago. No recent trauma. No knee pain. No back pain. No history of sciatica. Denies history of back surgeries. Denies any fall or other trauma. Denies history of diabetes. Patient denies any saddle anesthesia, urinary tension, bowel or bladder incontinence, lower extremity weakness, fever or IV drug use, no recent spinal manipulation or surgery, no recent u rinary catheterization. REVIEW OF SYSTEMS: All other systems reviewed and are negative except as noted in the history of present illness. At least 10 review of systems reviewed and are negative except as noted in history of present illness. PHYSICAL EXAM: Nursing triage notes reviewed, Vital signs reviewed Constitutional: please see mdm HENT: MMM Eyes: Pupils equal round and reactive to light, Extraocular muscles intact Neck: No stridor, no JVD, full neck ROM Lungs: Clear to auscultation, No wheezing or rales. No increased work of breathing, no conversational dyspnea, no accessory muscle use, no nasal flaring. No respiratory distress noted Heart: Regular rate and rhythm, No murmurs, No rubs and No gallops, 2+ distal pulses (radial, femoral, posterior tibial) in all extremities Abdomen: Soft, there is no tenderness, rigidity, rebound or guarding, no obvious peritoneal signs, no palpable pulsatile abdominal masses, no auscultated abdominal bruit : No CVAT Extremities: No edema Back: No midline step-offs or deformities Neuro: Intact sensation L1-S1 dermatomal distributions. Intact 5/5 strength in hip flexion (T12-L3). Knee extension (L2-L4). Ankle dorsiflexion (L4-L5). Ankle plantar flexion (S1). Great toe extension (L5). 2+ patellar and Achilles DTRs. Skin: No rash or lesions noted MEDICAL DECISION MAKING: Chief Complaint: Back pain External records reviewed: Reviewed prior x-ray lumbar spine showed normal lumbar lordosis, normal vertebral bodies, no fractures or dislocations Factors affecting care: Back pain Social determinants of health: No IV drug use History obtained from others: none Consults: none ALL IMAGES (IF OBTAINED) HAVE BEEN PERSONALLY REVIEWED AND INTERPRETED BY MYSELF. MDM Narrative: The patient was initially hemodynamically stable, afebrile and nontoxic-appearing. Left lower extremity is neurovascular intact. Had good cap refill, palpable pulses. Intact sensation although the patient noted subjective change in sensation of left lower extremity. Intact ankle knee and hip range of motion. No midline step-offs or deformities noted to the lumbar spine. I considered the following differential diagnosis: Musculoskeletal back pain, arterial occ (more content not included)... Normal [facility] Progress Noteon 03-05-2023 Power Machine Operator Authentication Interface Message Text I signed this encounter for immunotherapy vials preparation as I ordered Normal [facility] No Panel Informationon 07-02 POC SARS CoV-2 Antigen Negative [facility] Work Phone: Progress Noteon 04-24-2022 Power Machine Operator Authentication Interface Message Text Redd is a 21 y.o. male who presents to our office today for a follow up visit. He was last seen by me on 06/21/[address] Lopez on 08/22/18 and previous RAST (IgE) venom testing on 06/28/18 was Class III to wasp, Class III to white-faced hornet and Class III to yellow faced hornet and Class III to yellow jacket and Honeybee was borderline at 0.59 and skin testing was done to honeybee on 08/22/18 and he was negative and he started venom IT on 11/28/18 to Wasp and Mixed Vespid and he now receives 100mcg of wasp and 300mcg of mixed vespid every 4-6 weeks and he received injections at this visit. Of note, a previous tryptase on 06/28/18 was 1.5. Today, he presents for a follow up and for his venom injections. Since he has started venom injections, he had been stung 2-3 times with single stings and did not have issues but then in June 2021 he was stung and had to use his EpiPen and he was in [place] at the time and he had several stings with that episode (he got into a nest in tree stump and according to him had several/many stings, maybe 10-15 stings with this episode) but he says he did not go to the ED after using his EpiPen and I advised him that if he uses his EpiPen/AUVI-Q that he has to go to the ED/call 911/EMS. He has not had any issues with hives or skin rashes since he was seen last and presents for a follow up visit. He has a current EpiPen at this visit but requested a refill at this time. -His history of having an albuterol inhaler and this was filled by Dr. Lopez and he rarely needed this in the past and I refilled this at his 06/21/20 visit. He says he has not needed this at this time but I advised him to call for a refill if needed. Environmental Survey/Social History: Lives with parents and 2 sisters and sisters boyfriend. Special Needs: None. 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 Smoking/Alcohol/Dr ug Use or Exposure: No Recreational Activities/Sports: No Review of Systems/Past Medical History: Constitutional: denies fever, chills, weight loss. Eyes: denies vision changes, color blindness. Ears, nose throat and mouth: see narrative above. Respiratory: denies wheezing, cough or chest tightness/ see above narrative. Gastrointestinal: denies diarrhea, constipation, emesis. Genitourinary: denies dysuria or urine odor. Skin/integumentary: denies nail changes or other rash. Neurologic: denies seizures, weakness or speech problems. Hematologic/lymphati c: denies pallor. Allergic/Immunologic : see narrative above. No food issues. Past Medical History: Diagnosis Date Nystagmus Vision abnormalities Past Surgical History: Procedure Laterality Date ABLATION OF DYSRHYTHMIC FOCUS 4 yrs ago for SVT ADENOIDECTOMY TONSILLECTOMY Current Outpatient Medications Medication Sig Dispense Refill EPINEPHrine 0.3 MG injection Inject 1 Auto-Injector (0.3 mg) into the muscle once as needed (anaphylaxis) for up to 1 dose 2 Each 0 albuterol 108 (90 Base) MCG/ACT inhaler Inhale 2 Puffs into the lungs every 4 hours as needed for Wheezing or Cough 1 Inhaler 3 diphenhydrAMINE (BENADRYL) 25 MG capsule Take 2 Caps (50 mg) by mouth every 6 hours as needed for Itching 30 Cap 1 Spacer/Aero-Holding Chambers (AEROCHAMBER) MISC Use with inhalers as needed. (Patient not taking: Reported on 04/24/2022) 1 Each 1 famotidine (PEPCID) 20 MG tablet TAKE 1 TABLET BY MOUTH TWICE A DAY (Patient not taking: Reported on 04/24/2022) 0 Pediatric Multiple Vit-C-FA (FLINTSTONES/MY FIRST) with C & FA CHEW Take by mouth (Patient not taking: Reported on 04/24/2022) acetaminophen (TYLENOL) 250 MG TABS Take by mouth every 6 hours as needed (Patient not taking: Reported on 04/24/2022) No current facility-administere d medications for this visit. *He is off Cetirizine and Prilosec and does Benadryl as needed. He says he is still taking Pepcid. Family History Problem Relation Age of Onset Asthma Mother Miscarriages / Stillbirths Mother Allergies Mother Gallbladder Disease Mother Irritable Bowel Syndrome Mother Thyroid Disease Mother Other Mother hypothyroid Mental Retardation Sister Inflam Bowel Dis Father Crohn's Disease Father Mental Illness Sister anxiety Celiac Disease Maternal Grandmother Stomach Ulcer(s) Maternal Grandmother Other Maternal Grandmother hypothyroid Heart Problems Maternal Grandmother Afib Heart Problems Maternal Grandfather AAA, Afib Cancer Neg Hx Colon Cancer Neg Hx Colon Polyps Neg Hx Cystic Fibrosis Neg Hx Eosinophilic Esophagitis Neg Hx Hirschsprung's disease Neg Hx Kidney Disease Neg Hx Liver Disease Neg Hx Pancreatic Disease Neg Hx Ulcerative Colitis Neg Hx Allergies: Clindamycin-hives PE: Nursing note and Vital signs reviewed. Resp 16 Ht (!) 188 cm Wt (!) 100.1 kg BMI 28.33 kg/m Constitutional: He was awak (more content not included)... Normal [facility] Office Visit: UC: infected keith woody 01-30-2017 Documentation of current medications (procedure) Done Invalid Interpretation Code [facility] Work Phone: Fall risk assessment No Invalid Interpretation Code [facility] Work Phone: Tobacco smoking status NHIS Never Invalid Interpretation Code [facility] Work Phone: Tobacco use [facility] Never smoker Invalid Interpretation Code [facility] Work Phone: Office Visit: evaluation pos t traumatic scars right lower back, right ines 02-27-2014 Documentation of current medications (procedure) Done Invalid Interpretation Code [facility] Work Phone: Documentation of current medications (procedure) T Invalid Interpretation Code [facility] Work Phone: Tobacco smoking status NHIS Never Invalid Interpretation Code [facility] Work Phone: Tobacco use [facility] Never smoker Invalid Interpretation Code [facility] Work Phone: Vital Signs Date Time Vital Sign Value Performing Clinician Faci lity 07-21-2022 13:19-0400 Body height 187.96 cm DOCKING SAW OPERATOR-Kashmir Clark DOCKING SAW OPERATOR Work Phone: [facility] Work Phone: 07-21-2022 13:19-0400 Body mass index (BMI) [Percentile] Per age and sex 85.6 % DOCKING SAW OPERATOR-Kashmir Clark DOCKING SAW OPERATOR Work Phone: [facility] Work Phone: 07-21-2022 13:19-0400 Body mass index (BMI) [Ratio] 26.9 kg/m2 DOCKING SAW OPERATOR-Kashmir Clark DOCKING SAW OPERATOR Work Phone: [facility] Work Phone: 07-21-2022 13:19-0400 Body temperature 98.2 [degF] DOCKING SAW OPERATOR-Kashmir Clark DOCKING SAW OPERATOR Work Phone: [facility] Work Phone: 07-21-2022 13:19-0400 Body weight 95.25 kg DOCKING SAW OPERATOR-Kashmir Clark DOCKING SAW OPERATOR Work Phone: [facility] Work Phone: 07-21-2022 13:19-0400 Diastolic blood pressure 87 mm[Hg] DOCKING SAW OPERATOR-Kashmir Clark DOCKING SAW OPERATOR Work Phone: [facility] Work Phone: 07-21-2022 13:19-0400 Heart rate 103 /min DOCKING SAW OPERATOR-C Uriel Clark DOCKING SAW OPERATOR Work Phone: [facility] Work Phone: 07-21-2022 13:19-0400 Respiratory rate 16 /min DOCKING SAW OPERATOR-C Uriel Clark DOCKING SAW OPERATOR Work Phone: [facility] Work Phone: 07-21-2022 13:19-0400 SaO2% (BldA) [Mass fraction] 99 % DOCKING SAW OPERATOR-C Uriel Clark DOCKING SAW OPERATOR Work Phone: [facility] Work Phone: 07-21-2022 13:19-0400 Systolic blood pressure 137 mm[Hg] DOCKING SAW OPERATOR-C Uriel Clark DOCKING SAW OPERATOR Work Phone: [facility] Work Phone: 07-02-2022 11:43-0400 Body temperature 97.9 [degF] DOCKING SAW OPERATOR-C Uriel Clark DOCKING SAW OPERATOR Work Phone: [facility] Work Phone: 07-02-2022 11:43-0400 Diastolic blood pressure 68 mm[Hg] DOCKING SAW OPERATOR-C Uriel Clark DOCKING SAW OPERATOR Work Phone: [facility] Work Phone: 07-02-2022 11:43-0400 Heart rate 99 /min DOCKING SAW OPERATOR-C Uriel Clark DOCKING SAW OPERATOR Work Phone: [facility] Work Phone: 07-02-2022 11:43-0400 Respiratory rate 14 /min DOCKING SAW OPERATOR-C Uriel Clrak DOCKING SAW OPERATOR Work Phone: [facility] Work Phone: 07-02-2022 11:43-0400 SaO2% (BldA) [Mass fraction] 97 % DOCKING SAW OPERATOR-C Uriel Clark DOCKING SAW OPERATOR Work Phone: [facility] Work Phone: 07-02-2022 11:43-0400 Systolic blood pressure 112 mm[Hg] DOCKING SAW OPERATOR-C Uriel Clark DOCKING SAW OPERATOR Work Phone: [facility] Work Phone: 01-30-2017 11:20-0400 BMI (Body Mass Index) 24.29 kg/m2 Trinity Jim LPN [facility] Work Phone: 01-30-2017 11:20-0400 Body Temperature 98.3 [degF] Trinity Jim LPN [facility] Work Phone: 01-30-2017 11:20-0400 BP Diastolic 72 mm[Hg] Trinity Jim LPN [facility] Work Phone: 01-30-2017 11:20-0400 BP Systolic 104 mm[Hg] Trinity Jim LPN [facility] Work Phone: 01-30-2017 11:20-0400 Height 180.34 cm Trinity Jim LPN [facility] Work Phone: 01-30-2017 11:20-0400 Pulse (Heart Rate) 75 /min Trinity Jim LPN [facility] Work Phone: 01-30-2017 11:20-0400 Pulse Oximetry 98 % Trinity Jim LPN [facility] Work Phone: 01-30-2017 11:20-0400 Respiratory Rate 16 /min Trinity Jim LPN [facility] Work Phone: 01-30-2017 11:20-0400 Weight 79.02 kg Trinity Jim LPN [facility] Work Phone: 02-27-2014 16:32-0400 BMI (Body Mass Index) 21.68 kg/m2 Trinity Jim LPN [facility] Work Phone: 02-27-2014 16:32-0400 Body Temperature 98.6 [degF] Trinity Jim LPN [facility] Work Phone: 02-27-2014 16:32-0400 BP Diastolic 74 mm[Hg] Trinity Jim LPN [facility] Work Phone: 02-27-2014 16:32-0400 BP Systolic 119 mm[Hg] Trinity Jim LPN [facility] Work Phone: 02-27-2014 16:32-0400 BSA (Body Surface Area) 1.57 m2 Trinity Jim LPN [facility] Work Phone: 02-27-2014 16:32-0400 Height 160.02 cm Trinity Jim LPN [facility] Work Phone: 02-27-2014 16:32-0400 Pulse (Heart Rate) 99 /min Trinity Jim LPN [facility] Work Phone: 02-27-2014 16:32-0400 Pulse Oximetry 100 % Trinity Jim LPN [facility] Work Phone: 02-27-2014 16:32-0400 Respiratory Rate 16 /min Trinity Jim LPN [facility] Work Phone: 02-27-2014 16:32-0400 Weight 55.51 kg Trinity Jim LPN [facility] Work Phone: 02-27-2014 16:32-0400 Weight 55.63 kg Trinity Jim LPN [facility] Work Phone: Encounters Encounter Date Encounter Type Care Provider Facility Start: 11-10-2024 End: 11-10-2024 ambulatory Uriel Nunda Facility:[facility] [place] Start: 09-29-2024 End: 09-29-2024 Emergency department patient visit Uriel Clark Facility:[facility] Start: 03-12-2023 ambulatory LUKASZ [facility] Start: 03-05-2023 ambulatory LUKASZABDULAZIZ NAVA [facility] Start: 01-08-2023 ambulatory [facility] Start: 11-20-2022 ambulatory [facility] Start: 10-09-2022 ambulatory [facility] Start: 09-11-2022 ambulatory SELF REFERRED [facility] Start: 08-14-2022 ambulatory [facility] Start: 07-21-2022 End: 07-21-2022 Emergency department patient visit DOCKING SAW OPERATOR-Kashmir Clark DOCKING SAW OPERATOR Work Phone: [facility] Start: 07-17-2022 End: 07-17-2022 ambulatory [facility] Start: 07-02-2022 End: 07-02-2022 Patient encounter procedure DOCKING SAW OPERATOR-Kashmir Clark DOCKING SAW OPERATOR Work Phone: [facility] Start: 06-19-2022 End: 06-19-2022 ambulatory [facility] Start: 05-22-2022 ambulatory [facility] Start: 04-24-2022 End: 04-24-2022 [facility] Start: 03-13-2022 End: 03-13-2022 [facility] Procedures Date Procedure Procedure Detail Performing Clinician Start: 07-21-2022 Diagnostic radiograp hy of nasal bones DOCKING SAW OPERATOR-Kashmir Clark DOCKING SAW OPERATOR Work Phone: Start: 02-27-2014 End: 02-27-2014 Follow Up Appt Other Jd Albrecht MD Plan of Treatment Date Care Activity Detail Author Start: 01-30-2017 End: 01-30-2017 Appointment Appointment [facility] Work Phone: Start: 02-27-2014 End: 02-27-2014 Follow Up Appt Other Follow Up Appt Other [facility] Work Phone: Patient Education [facility] Work Phone: Patient referral [facility] Work Phone: Immunizations Immunization Date Immunization Notes Care Provider Fa [facility] 07-21-2022 tetanus toxoid, redu felix diphtheria toxoid, and acellular pertussis vaccine, adsorbed DOCKING SAW OPERATOR-C Uriel Clark NP Work Phone: [facility] Work Phone: Payers Date Payer Category Payer Self-pay [id number] 2024 Unknown [id number] 2010 Private Health Insurance [facility]LY [facility] [id number] 2002 Unknown [id number] 2.16. [id number] 2002 Unknown [id number] 2.16 [id number] 2002 Unknown [id number] 2.16 [id number] 2002 Unknown [id number] 2.16. [id number] 2002 Unknown [id number] 2.16. [id number] 2002 Unknown [id number] 2.16. [id number] 2002 Unknown [id number] 2.16. [id number] 2002 Unknown [id number] 2.16. [id number] 2002 Unknown [id number] 2.16. [id number] 2002 Unknown [id number] 2.16. [id number] 2002 Unknown [id number] 2.16. [id number] 2002 Unknown [id number] 2.16. [id number] 2002 Unknown [id number] 2.16. [id number] Unknown [id number] 2.16.8 [id number] Unknown [id number] 2.16.8 [id number] Social History Date Type Detail Facility Start: 07-21-2022 Tobacco smoking stat [facility] Unknown if ever smoked [facility] Work Phone: Start: 2002 Sex Assigned At Male [facility] Work Phone: Mental Status Date Assessment Result Facility 07-21-2022 Cognitive function Level Of Cons ciousness Awake;Alert;Appropriate [facility] Work Phone: Evaluation note Note Date & Type Note Facility Evaluation note Diagnosis Onset Date Contact with and (suspected) exposure to other viral communicable diseases acute URI (upper respiratory infection) acute [facility] Work Phone: Chief Complaint and Reason for Visit Chief Complaint cold sx NOSE INJURY Reason for Visit Contact with and (paris spected) exposure to other viral communicable diseases URI (upper respiratory infection) Advance Directives No Advanced Directives Records Found Advance Directive Response Recorded Date/ Time Name of Medical Power of Cat Sitter Aletha Kincaid July 21, 2022 3:00pm Living Will Yes July 21 3:00pm Power of Cat Sitter Yes July 21, 2022 3:00pm Summary Purpose Family History No Family History Records FoundNo Family History Records Found Additional Source Comments Goals (unrecognized section and content) Goals may be documented in a n alternate section (unrecognized sect ion and content) No Status Records FoundNo Status Records Found INFORMATION SOURCE (unrecogn ized section and content) DATE CREATED AUTHOR 03/13/2023 [facility] DATE CREATED AUTHOR AUTHOR'S ORGANIZ ATJOSEPH 11/12/2024 [facility] FOR RECORDS PERTAINING TO PATIENTS WHO ARE OR HAVE BEEN ENROLLED IN A CHEMICAL DEPENDENCY/SUBSTANCEABUSE PROGRAM, SOME INFORMATION MAY BE OMITTED. This clinical summary was aggregated from multiple sources. Caution should be exercised in using it in the provision of clinical care. This summary normalizes information from multiple sources, and as a consequence, information in this document may materially change the coding, format and clinical context of patient data. In addition, data may be omitted in some cases. CLINICAL DECISIONS SHOULD BE BASED ON THE PRIMARY CLINICAL RECORDS. [facility] [employer], [facility]. provides no warranty or guarantee of the accuracy or completeness of information in this document.
[2025-05-01 00:09] VITALS: BP 127/81; PULSE 92; RESP 18; TEMP 36.4; O2SAT 99
== END 2025-05-01 00:13 | disposition home or self-care (01) ==
LOC: ED 23:40
PROVIDERS: Emergency Provider Emergency Medicine; PCP Nurse Practitioner; Visit Provider Emergency Medicine
DX: T63.441A Toxic effect of venom of bees, accidental (unintentional), initial encounter (principal); F17.290 Nicotine dependence, other tobacco product, uncomplicated; F17.210 Nicotine dependence, cigarettes, uncomplicated
CPT/HCPCS: 96374; 99283; A4216